=== PATIENT | male | born 1930 | race Caucasian/White ===

== ENCOUNTER 2017-06-26 15:21 | Emergency (ER) | payer OTHER, MEDICARE ==
[~2017-06-26] VITALS: Ht 177.8 cm; Wt 89.4 kg
[~2017-06-26 15:21] MED LIST: AMLO-110 PO; ASPI1TAB83 PO; GABA-1219 PO; GLIP10TA10 PO; INSDGI SC; LSN20 PO; METO25TA3 PO; NVLGI SC; SOLI5TAB2 PO; TAMS0.4C38 PO
[2017-06-26 15:22] VITALS: BP 124/66; PULSE 71; TEMP 36.6; O2SAT 95; Ht 177.8 cm; Wt 89.4 kg
[2017-06-26] MEDS ORDERED: PENI-82 PO (16:21)
--- NOTE | 2017-06-26 16:28 | EMERGENCY ROOM VISIT NOTE ---
History First contact with patient: 15:45 Chief Complaint: DENTAL PAIN Stated Complaint: TOOTH ACHE Nursing Triage Summary: Left bottom tooth ache since last night, now feels like his glands are getting swollen. Visiting from out of town, has not been able to get in touch with a dentist. History of Present Illness The patient is a 86 year old male who presents to the Emergency Room with complaints of left lower dental pain that is worsened with chewing. He also complains of some pain radiating into his ears. The patient denies any recent sore throat, runny nose, congestion or cough. He also denies any chest pain or pressure. The daughter reports that he has had multiple dental abscesses in the past. The patient has not been running any fevers at home, and denies any problems with speech or swallowing. He has taken some Tylenol for the pain. The patient is requesting penicillin antibiotics. Review of Systems 10 system review was performed and was negative except for pertinent positives and negatives as indicated in history of present illness Past Medical/Surgical History Medical Problems: (1) UTI (urinary tract infection) Medical Problems: (1) Essential (Primary) Hypertension (2) History of nephrectomy, unilateral (3) Personal History Of Other Malignant Neoplasm Of Kidney (4) Type 2 Diabetes Mellitus Without Complications (5) UTI (urinary tract infection) Surgical Problems: (1) History of cholecystectomy (2) History of spinal surgery Family History FH: diabetes mellitus FH: heart disease FH: hypertension Noncontributory due to advanced age Social History Smoking Status: Current Some Day Smoker Alcohol Use: occasionally Drug Use: none Marital Status: Housing Status: lives with family Occupation Status: retired Current/Historical Medications Scheduled Amlodipine (Norvasc), 5 MG PO DAILY Aspirin (Aspirin), 81 MG PO DAILY Gabapentin (Gabapentin), 300 MG PO TID Glipizide (Glipizide), 10 MG PO BID Insulin Aspart (Novolog), SC DAILY Insulin Glargine (Lantus), SC BID Lisinopril (Lisinopril), 20 MG PO DAILY Metoprolol Succ (Toprol Xl) (Toprol-Xl), 25 MG PO DAILY Penicillin V Potassium (Veetids), 500 MG PO QID Solifenacin Succinate (Vesicare), 5 MG PO DAILY Tamsulosin Hcl (Flomax), 0.4 MG PO DAILY Physical Exam Vital Signs Date Time Temp Pulse Resp B/P (MAP) Pulse Ox O2 Delivery O2 Flow Rate FiO2 06/26/17 15:22 36.6 71 18 124/66 95 Room Air Physical Exam CONSTITUTIONAL: Healthy and well nourished. Alert and oriented X 3 with positive affect. HEENT: Normocephalic, atraumatic. Pupils equal, round and reactive. No facial edema noted. OROPHARYNX: Examination shows tenderness to palpation and percussion of left lower molar ADA #18. No surrounding gingival erythema, fluctuance or pointing noted. No evidence for Daron's angina or retropharyngeal abscess. LYMPHATICS: No cervical chain or submandibular adenopathy. NECK: Full active range of motion without discomfort. INTEGUMENTARY: No rash or other significant dermatologic conditions noted. NEUROLOGIC: Facial sensations are intact. Medical Decision & Procedures ED Course Patient history and physical exam were performed. Nurse's notes were reviewed. Vital signs were reviewed and were normal. The patient will be provided a prescription for Pen-Vee K 500 mg 4 times daily 10 days. He was encouraged to continue with Tylenol as needed for pain. I did stress the importance of follow -up with his dentist for further management. He was instructed to return to the emergency department for any progressively worsening symptoms the patient was happy with plan of care, and voiced understanding of all discharge instructions. The patient was also seen and examined by Dr. Pulliam, ED attending physician, who agrees with workup and plan of care. Medical Decision Medication Reconcilliation Current Medication List: was personally reviewed by ks Blood Pressure Screening Patient's blood pressure: Normal blood pressure Impression Primary Impression: Pain, dental Departure Information Dispostion Home / Self-Care Prescriptions Penicillin V Potassium (Veetids) 500 Mg Tab 500 MG PO QID, #40 TAB Prov: Lester Cisse PA 06/26/17 Forms HOME CARE DOCUMENTATION FORM, IMPORTANT VISIT INFORMATION Patient Instructions My [facility] Additional Instructions Complete all Pen-Vee K antibiotics as prescribed. Continue with Tylenol 1000 mg every 6-8 hours as needed for pain. Follow-up with your dentist for further management. Return to the emergency department for any developing facial pain, difficulty swallowing, fever or other concerns.
== END 2017-06-26 16:26 | disposition home or self-care (01) ==
LOC: C.EDB 15:22 → C.EDD 16:26
DX: K08.89 Other specified disorders of teeth and supporting structures (principal); I10 Essential (primary) hypertension; E11.9 Type 2 diabetes mellitus without complications; F17.200 Nicotine dependence, unspecified, uncomplicated; Z85.528 Personal history of other malignant neoplasm of kidney; Z87.440 Personal history of urinary (tract) infections; Z90.5 Acquired absence of kidney; Z90.49 Acquired absence of other specified parts of digestive tract; Z98.890 Other specified postprocedural states; Z83.3 Family history of diabetes mellitus; Z82.49 Family history of ischemic heart disease and other diseases of the circulatory system; Z79.4 Long term (current) use of insulin; Z79.82 Long term (current) use of aspirin; Z79.84 Long term (current) use of oral hypoglycemic drugs; Z79.899 Other long term (current) drug therapy